=== PATIENT | female | born 1980 | race Caucasian/White ===

== ENCOUNTER 2019-08-24 04:05 | Inpatient (IN) | payer BC, OTHER ==
[2019-08-24 04:51] LABS: BASO % 0.6 % (0-2.0); HEMATOCRIT 37.8 % (32.4-45.2); HEMOGLOBIN 12.9 GM/dL (10.7-15.3); LYMPH % 17.1 % (8-40); MCH 30.8 pg (25.7-33.7); MEAN CELL VOLUME 90.5 fl (80-96); MONO % 8.5 % (3.8-10.2); NEUT % 72.8 % (42.8-82.8); PLATELET COUNT 180 K/MM3 (134-434); RBC 4.18 M/mm3 (3.60-5.2); RDW 13.2 % (11.6-15.6); WHITE BLOOD COUNT 11.7 K/mm3 (4.0-10.0)
[2019-08-24 05:04] LABS: INR 0.95 (0.83-1.09); PROTHROMBIN TIME (PATIENT) 11.2 SEC (9.7-13.0)
[2019-08-24] MEDS ORDERED: OXYTOCIN 20 UNITS in 0.9% NS 20 UNIT/1,000 ML INFUS.BAG IV ONE ×2 (05:04→07:34)
[2019-08-24 05:06] LABS: ACTIVATED PTT 31.5 SECONDS (25.2-36.5)
[2019-08-24 05:10] LABS: BLOOD UREA NITROGEN 14.1 mg/dL (7-18); CALCIUM 8.6 mg/dL (8.5-10.1); CREATININE 0.7 mg/dL (0.55-1.3); POTASSIUM 3.4 mmol/L (3.5-5.1)
[2019-08-24 05:20] VITALS: BMI 28.7
--- NOTE | 2019-08-24 05:31 | PN ---
Delivery - Delivery Vaginal Delivery: No Problems Type of Anesthesia: None Episiotomy/Laceration: None EBL (cc): 200 Delivery, Single - Stages of Labor Date 1st Stage Initiatied: 08/24/19 Time 1st Stage Initiated: 03:00 Date 2nd Stage Initiated: 08/24/19 Time 2nd Stage Initiated: 05:00 Date of Delivery: 08/24/19 Time of Delivery: 05:19 Date Placenta Delivered: 08/24/19 Time Placenta Delivered: 05:22 Placenta: Yes: Spontaneous - Condition of Litigation Manager/Director Automotive Present: No Gender: Male Weight: 6 lb 15 oz Position: OA - 1 Minute Total Score: 9 5 Minutes Total Score: 9 - Feeding Plan Initial Plan: Exclusive throughout hospitalization Remarks - Remarks Remarks: Uncomplicated delivery of head and shoulders
--- NOTE | 2019-08-24 05:31 | HP ---
Past Medical History - Primary Care Physician PCP:: Sera Akins - Past Medical History ...: 3 ...Para: 2 ...Term: 2 ...: 0 ...Spon : 0 ...Induced : 0 ...Multiple Gestation: 0 ...LMP: 11/25/18 ... Weeks Gestation by Dates: 38.6 ...EDC by Dates: 09/01/19 ...EDC by Sono: 09/01/19 - Smoking History Smoking history: Never smoked Have you smoked in the past 12 months: No - Alcohol/Substance Use Hx Alcohol Use: No Home Medications - Allergies Allergies/Adverse Reactions: Allergies Allergy/AdvReac Type Severity Reaction Status Date / Time No Known Allergies Allergy Verified 08/24/19 04:38 - Home Medications Home Medications: Ambulatory Orders Vitamins (Sjr) - 1 tab PO DAILY 10/17/13 Valacyclovir HCl [Valtrex -] 500 mg PO DAILY 08/24/19 Physical Exam - Maternity - Labs Lab Results: CBC, BMP 08/24/19 04:40 08/24/19 04:40
[2019-08-24] MEDS ORDERED: AMPICILLIN - 2 GM in SODIUM CHLORIDE 100 ML IVPB ONE ×2 (05:35→05:59)
[2019-08-24] MEDS ORDERED: METHYLERGONOVINE MALEATE 0.2 MG/1 ML AMP IM PRN (05:36)
[2019-08-24] MEDS ORDERED: BENZOCAINE 28 GM HEMORRHOIDAL OINTMENT TP PRN (05:36)
[2019-08-24] MEDS ORDERED: BISACODYL 10 MG SUPP.RECT RC PRN (05:36)
[2019-08-24] MEDS ORDERED: WITCH HAZEL 50% (TUCKS) 40 PAD/JAR PAD TP PRN (05:36)
[2019-08-24] MEDS ORDERED: BENZOCAINE 20% 57 GM BOTTLE TP PRN (05:36)
[2019-08-24] MEDS ORDERED: ELECTROLYTE-148 SOLN 1,000 ML IV SCH (05:45)
[2019-08-24] MEDS ORDERED: D5W-LR W/ 20 UNITS OXYTOCIN 20 UNIT/1,000 ML INFUS.BAG IV SCH (05:45)
[2019-08-24] MEDS ORDERED: OXYTOCIN 20 UNITS in 0.9% NS 20 UNIT/1,000 ML INFUS.BAG IV SCH (06:00)
[2019-08-24] MEDS: IBUPROFEN 600 MG TABLET (FP) PO PRN (08:09)
[2019-08-24] MEDS: ACETAMINOPHEN 325 MG TABLET (FP) PO PRN (08:10)
[2019-08-24] MEDS: PRENATAL VITAMINS W/ FOLIC ACID TABLET (FP) PO SCH (10:24)
[2019-08-24] MEDS: FERROUS SO4 325 MG TABLET (FP) PO SCH ×2 (10:24→21:20)
[2019-08-25] MEDS: IBUPROFEN 600 MG TABLET (FP) PO PRN ×3 (02:37→19:36)
--- NOTE | 2019-08-25 06:14 | PN ---
Progress Note (short form) - Note Progress Note: ppd1 doing well, no c/o , voids ok, no excess vaginal bleeding Last Vital Signs Temp Pulse Resp BP Pulse Ox 98.0 F 68 20 126/74 100 08/25/19 05:10 08/25/19 05:10 08/25/19 05:10 08/25/19 05:10 08/24/19 07:00 abdomen soft,no distension , no cva uterus firm , non tender lochia mild no calf tenderness plan ambulate ,cbc
[2019-08-25] MEDS: ACETAMINOPHEN 325 MG TABLET (FP) PO PRN ×2 (07:34→19:35)
[2019-08-25 09:39] LABS: BASO % 0.2 % (0-2.0); EOS % 0.8 % (0-4.5); HEMATOCRIT 38.7 % (32.4-45.2); HEMOGLOBIN 13.1 GM/dL (10.7-15.3); LYMPH % 12.7 % (8-40); MCH 30.9 pg (25.7-33.7); MCHC 33.8 g/dl (32.0-36.0); MEAN CELL VOLUME 91.6 fl (80-96); MEAN PLT VOLUME 10.6 fl (7.5-11.1); MONO % 5.5 % (3.8-10.2); NEUT % 80.8 % (42.8-82.8); PLATELET COUNT 165 K/MM3 (134-434); RBC 4.23 M/mm3 (3.60-5.2); RDW 13.2 % (11.6-15.6)
[2019-08-25] MEDS ORDERED: FLU VACC QS2019-20(6MOS UP)/PF 60 MCG/0.5 ML SYRINGE IM ONE (10:00)
[2019-08-25] MEDS ORDERED: DIPHTH,PERTUSS(ACELL),TET 0.5 ML DISP.SYRIN IM ONE (10:00)
[2019-08-25] MEDS ORDERED: FLU VACCINE QUAD 60 MCG/0.5 ML (MDV 19-20) IM ONE (10:00)
[2019-08-25] MEDS: FERROUS SO4 325 MG TABLET (FP) PO SCH ×2 (11:20→22:15)
[2019-08-25] MEDS: PRENATAL VITAMINS W/ FOLIC ACID TABLET (FP) PO SCH (11:20)
[2019-08-25] MEDS ORDERED: SENNOSIDES/DOCUSATE COMBO (SENNA PLUS) TABLET (UD) PO PRN (22:00)
[2019-08-26 08:36] VITALS: BP 134/77; PULSE 80; TEMP 97.8
[2019-08-26] MEDS: FERROUS SO4 325 MG TABLET (FP) PO SCH (09:48)
[2019-08-26] MEDS: PRENATAL VITAMINS W/ FOLIC ACID TABLET (FP) PO SCH (09:48)
--- NOTE | 2019-08-26 12:22 | DS ---
Physical Exam-DIRECTOR OF RETENTION Vital Signs: Vital Signs Temperature 97.8 F 08/26/19 08:30 Pulse Rate 80 08/26/19 08:30 Respiratory Rate 20 08/26/19 08:30 Blood Pressure 134/77 08/26/19 08:30 O2 Sat by Pulse Oximetry (%) 100 08/24/19 07:00 Constitutional: Yes: Well Nourished, No Distress, Calm Eyes: Yes: WNL, Conjunctiva Clear, EOM Intact HENT: Yes: WNL, Atraumatic, Normocephalic Neck: Yes: WNL, Supple, Trachea Midline Cardiovascular: Yes: WNL, Regular Rate and Rhythm Respiratory: Yes: WNL, Regular, CTA Bilaterally Gastrointestinal: Yes: WNL, Normal Bowel Sounds, Soft ...Rectal Exam: Yes: Deferred Renal/: Yes: WNL ....Post : Yes: Uterus firm, Uterus non-tender, Slight lochia rubra Breast(s): Yes: WNL Musculoskeletal: Yes: WNL Extremities: Yes: WNL Edema: No Integumentary: Yes: WNL Neurological: Yes: WNL, Alert, Oriented ...Motor Strength: WNL Psychiatric: Yes: WNL, Alert, Oriented Labs: CBC, BMP 08/25/19 08:30 08/24/19 04:40 Delivery - Delivery Vaginal Delivery: No Problems Type of Anesthesia: None Episiotomy/Laceration: None EBL (cc): 200 Delivery, Single - Stages of Labor Date 1st Stage Initiatied: 08/24/19 Time 1st Stage Initiated: 03:00 Date 2nd Stage Initiated: 08/24/19 Time 2nd Stage Initiated: 05:00 Date of Delivery: 08/24/19 Time of Delivery: 05:19 Time Placenta Delivered: 05:22 Placenta: Yes: Spontaneous - Condition of Infant Photographic Plate Maker/Technology Teacher Present: No Infant Gender: Male Weight: 3.147 kg Position: OA Total Hours ROM (Hrs/Mins): 25mins - 1 Minute Total Score: 9 5 Minutes Total Score: 9 - Feeding Plan Initial Plan: Exclusive throughout hospitalization Benefits of Exclusively reinforced: Yes Discharge Summary Problems reviewed: Yes Reason For Visit: LABOR ADMIT Procedures: Principal: Hospital Course: Normal recovery Condition: Good - Instructions Diet, Activity, Other Instructions: Physical activity Resume your normal everyday activity as tolerated no heavy lifting or exercise until seen by your surgeon. You may walk unlimited gilmer of and climb stairs. You may resume driving the car when you feel safe and comfortable behind the wheel. No sexual activity as instructed. Wound care If you have a bandage, leave it on, and keep dry for 48-72 hours. After that time discard the outer bandage. If they are tapes on the skin under the out of bandage leave them in place. They will peel off in the next 7 to 10 days. Do Not Peel them off. You may shower the day after surgery. If there are tapes present on the skin, you may shower over them. Diet There are no dietary restrictions. Eat healthy, high-fiber foods. Drink 6 to 8 glasses of liquid each day. This will assist in keeping your bowels are regular. Pain management You may take Tylenol or acetaminophen or Ibuprofen (for example, Motrin, Advil etc.) from my pain prescription medication is ordered should be taken as prescribed for moderate to severe pain. Call MD for any of the following: Severe pain not relieved by medication Fever of 101 or higher Excessive bleeding or drainage on dressing Inability to urinate Referrals: Sera Akins MD [Staff Physician] - Disposition: HOME - Home Medications Comprehensive Discharge Medication List: Ambulatory Orders Vitamins (Sjr) - 1 tab PO DAILY 10/17/13 Valacyclovir HCl [Valtrex -] 500 mg PO DAILY 08/24/19 Prescription Drug Monitoring Program (I-STOP) results: I-STOP not reviewed
== END 2019-08-26 12:00 | disposition home or self-care (01) | DRG 807 ==
LOC: JLDR 04:05 → J3W 07:50
PROVIDERS: ADMIT Obstetrics & Gynecology; ATTEND Obstetrics & Gynecology
PROC: 10E0XZZ Delivery of Products of Conception, External Approach (ICD-10-PCS; principal; 2019-08-24)
DX: O80 Encounter for full-term uncomplicated delivery (principal); Z37.0 Single live birth; Z3A.38 38 weeks gestation of pregnancy
CPT/HCPCS: 36415; 59409; 80048; 85025; 85610; 85730; 86593; 86850; 86900; 86901; 87389; 90715